=== PATIENT | male | born 1950 | race Caucasian/White ===

== ENCOUNTER → 2024-10-13 12:24 | Outpatient (BNVA) | payer OTHER, SELFPAY | PROVIDERS: Visit Provider Internal Medicine | DX: R07.9 Chest pain, unspecified (principal) | CPT/HCPCS: 93005 ==

== ENCOUNTER 2024-10-28 13:14 | Outpatient (CLI) | payer OTHER, SELFPAY ==
--- NOTE | 2024-10-28 13:15 | USR_ITS ---
PROCEDURE INFORMATION: Exam: US Duplex Bilateral Lower Extremity Arteries Exam date and time: 10/28/2024 1:51 PM Age: 74 years old Clinical indication: Pain; Leg, upper and leg, lower; Bilateral; Additional info: Bilat leg pain TECHNIQUE: Imaging protocol: Real-time ultrasound scan of the arteries of the bilateral lower extremities with 2-D arnold scale, color Doppler flow and spectral waveform analysis. Images documented and saved. COMPARISON: No relevant prior studies available. FINDINGS: Right common femoral artery: No occlusion or significant stenosis. Multiphasic waveform. Right superficial femoral artery: No occlusion or significant stenosis. Multiphasic waveform. Right popliteal artery: No occlusion or significant stenosis. Multiphasic waveform. Right calf/foot arteries: No occlusion or significant stenosis in the visualized arteries. Multiphasic waveforms. Dorsalis pedis artery is patent. Left common femoral artery: No occlusion or significant stenosis. Monophasic waveform. Left superficial femoral artery: No occlusion or significant stenosis. Monophasic waveform. Left popliteal artery: No occlusion or significant stenosis. Monophasic waveform. Left calf/foot arteries: No occlusion or significant stenosis in the visualized arteries. Monophasic waveforms. Dorsalis pedis artery is patent. TAYE: 0.93 on the right and 0.77 on the left. Other: Visualized iliac arteries appearing multiphasic on the right and monophasic on the left. Scattered plaque noted bilaterally. Generalized decreased systolic velocities of the left leg in relation to the right leg noted. US/[id number] IMPRESSION: 1. TAYE 0.93 on the right, which is normal. Multiphasic waveforms noted throughout the right leg as well. No occlusion or significant stenosis is seen. 2. TAYE 0.77 on the left suggesting [id number] runoff disease. Diffuse monophasic waveforms noted throughout the left leg as well. No occlusion or significant stenosis is seen, though with relative decreased systolic velocities of the left leg in relation to the right.
== END 2024-10-28 13:15 | disposition home or self-care (01) ==
PROVIDERS: Visit Provider Internal Medicine
DX: M79.604 Pain in right leg (principal); M79.605 Pain in left leg; R93.89 Abnormal findings on diagnostic imaging of other specified body structures
CPT/HCPCS: 93925

== ENCOUNTER 2024-12-27 14:02 | Outpatient (CLI) | payer MEDICARE, SELFPAY ==
--- NOTE | 2024-12-27 06:15 | USCV_ITS ---
Joce Lu Age: 74 Gender: M : 1950 Exam Date: 12/27/2024 14:20 Ordering Phys: Vu Olson M.D ([email or web address]) Technologist: GILBERT Exam Location: [facility] [place] Indication: SoB BP: 128 / 58 HR: 55 Rhythm: Sinus Technical Quality: Adequate MEASUREMENTS (Male / Female) Normal Values 2D ECHO LV Diastolic Diameter PLAX 5.5 cm 4.2 - 5.9 / 3.9 - 5.3 cm IVS Diastolic Thickness 0.9 cm 0.6 - 1.0 / 0.6 - 0.9 cm IVS Systolic Thickness 1.7 cm LVPW Diastolic Thickness 1.4 cm 0.6 - 1.0 / 0.6 - 0.9 cm LVPW Systolic Thickness 1.6 cm LVOT Diameter 2.2 cm LV Ejection Fraction 2D Teich 59.6 % LV Ejection Fraction MOD 4C 63.8 % LV Ejection Fraction MOD 2C 57.0 % LV Ejection Fraction 2C AL 60.8 % LA Diameter 3.0 cm RA Systolic Volume 4C AL 50.9 ml RA Systolic Volume 4C MOD 48.3 ml LA Sys Volume AL 59.5 cm cubed LA Sys Volume Index AL 28.3 cm cubed/m squared IVC Diameter 2.1 cm M-MODE LA Ao Ratio MM 1.0 AV Cusp Separation MM 1.8 cm DOPPLER AV Peak Velocity 125.0 cm/s LVOT Peak Velocity 121.0 cm/s AV Area Cont Eq vti 2.3 cm squared AV Area Cont Eq pk 3.5 cm squared MV Peak Velocity 117.0 cm/s MV Area PHT 4.9 cm squared Mitral E to A Ratio 1.1 TR Peak Velocity 101.0 cm/s TR Peak Gradient 4.1 mmHg TV Peak E Velocity 82.0 cm/s PV Peak Velocity 114.0 cm/s FINDINGS Left Ventricle Normal left ventricular size, systolic function and wall thickness, with no regional wall motion abnormalities. Left ventricular ejection fraction is estimated at 60 %. Grade II/IV diastolic dysfunction, moderately elevated filling pressures. Right Ventricle The right ventricle is normal in size and function. Right Atrium The right atrium is normal in size. Left Atrium The left atrium is normal in size. Mitral Valve Structurally normal mitral valve without significant stenosis or prolapse. There is trace mitral regurgitation. Aortic Valve Structurally normal aortic valve without significant sclerosis or stenosis. There is no aortic regurgitation. Tricuspid Valve Structurally normal tricuspid valve without significant stenosis or regurgitation. Pulmonary artery systolic pressure is normal. Pulmonic Valve Structurally normal pulmonic valve without significant stenosis. There is no pulmonic regurgitation. Pericardium Normal pericardium without effusion. Aorta Normal ascending aorta dimension. IVC The inferior vena cava appears normal. CONCLUSIONS Normal left ventricular size, systolic function and wall thickness, with no regional wall motion abnormalities. Left ventricular ejection fraction is estimated at 60 %. Grade II/IV diastolic dysfunction, moderately elevated filling pressures. Structurally normal mitral valve without significant stenosis or prolapse. There is trace mitral regurgitation. There is no pericardial effusion. Right atrial pressure is around 5 mm of mercury. Terra Rivas MD (Electronically Signed) Final Date: 29 December 2024 14:06 S
== END 2024-12-27 14:03 | disposition home or self-care (01) ==
LOC: RAD 14:04
PROVIDERS: PCP Medical Genetics, Ph.D. Medical Genetics; Visit Provider Internal Medicine
DX: R06.02 Shortness of breath (principal)
CPT/HCPCS: 93306

== ENCOUNTER → 2025-05-24 13:12 | Outpatient (BNVA) | payer MEDICARE, SELFPAY | PROVIDERS: PCP Medical Genetics, Ph.D. Medical Genetics; Visit Provider Internal Medicine | DX: I48.91 Unspecified atrial fibrillation (principal); Z95.0 Presence of cardiac pacemaker; Z79.01 Long term (current) use of anticoagulants; Z87.891 Personal history of nicotine dependence | CPT/HCPCS: 99214 ==